=== PATIENT | male | born 1950 | race Caucasian/White ===

== ENCOUNTER 2020-11-10 08:40 | Inpatient (IN) ==
[2020-11-10] MEDS ORDERED: Nitroglycerin 0.4 MG TAB.SUBL SL PRN (13:29)
[2020-11-10] MEDS: *HR* OxyCODONE/APAP 5/325 TABLET PO PRN ×2 (17:20→23:32)
[2020-11-10] MEDS: Ondansetron 4 MG/2 ML VIAL IVP PRN (17:45)
[2020-11-10] MEDS: *HR* Ticagrelor 90 MG TABLET PO SCH (21:31)
[2020-11-10] MEDS: Metoprolol XL (24 HR) Succ 50 MG TAB.ER.24H PO SCH (21:32)
[2020-11-11 05:39] LABS: Basophils # 0.1 K/mcL (0.0-0.2); Basophils % 0.6 %; Eosinophils # 0.2 K/mcL (0.0-0.6); Eosinophils % 1.7 %; Hematocrit 41.1 % (37.5-50.1); Hemoglobin 13.8 g/dL (12.9-16.9); Immature Granulocytes % 0.2 % (0-4); Lymphocytes # 2.3 K/mcL (0.6-4.6); Lymphocytes % 25.7 %; Mean Corpuscular HGB Conc 33.6 g/dL (31.6-35.5); Mean Corpuscular Hemoglobin 29.9 pg (28.0-33.3); Mean Platelet Volume 11.2 fL (9.4-12.4); Monocytes % 10.7 %; Neutrophils # 5.5 K/mcL (1.6-8.9); Platelet Count 252 K/mcL (140-400); Red Blood Count 4.62 M/mcL (4.19-5.50); Segmented Neutrophils % 61.1 %
[2020-11-11 05:55] LABS: BUN/Creatinine Ratio 22 (6-26); Blood Urea Nitrogen 21 mg/dL (8-23); Calcium 8.2 mg/dL (8.6-10.3); Carbon Dioxide 23 mEq/L (23-29); Chloride 104 mEq/L (98-107); Glucose 86 mg/dL (70-105); Magnesium 1.7 mg/dL (1.6-2.6); Osmolality,Calculated 282 (280-300); Sodium 135 mEq/L (136-145); eGFR For African Americans > 60 (> 60); eGFR For Non-African Americans > 60 (> 60)
[2020-11-11 06:06] LABS: Potassium 3.9 mEq/L (3.5-5.1)
[2020-11-11] MEDS: *HR* OxyCODONE/APAP 5/325 TABLET PO PRN ×3 (06:15→20:48)
[2020-11-11] MEDS: Ondansetron 4 MG/2 ML VIAL IVP PRN (06:56)
[2020-11-11] MEDS: lisinopriL 5 MG TABLET PO SCH (08:20)
[2020-11-11] MEDS: Magnesium Oxide 400 MG TABLET PO SCH (08:20)
[2020-11-11] MEDS: Nicotine 14 MG PATCH.TD24 TD SCH (08:20)
[2020-11-11] MEDS: Isosorbide MONOnitrate (24 HR) 30 MG TAB.ER.24H PO SCH (08:20)
[2020-11-11] MEDS: Aspirin 81 MG TAB.CHEW PO SCH (08:20)
[2020-11-11] MEDS: Metoprolol XL (24 HR) Succ 50 MG TAB.ER.24H PO SCH ×2 (08:21→20:48)
[2020-11-11] MEDS: Loratadine 10 MG TABLET PO SCH (08:21)
[2020-11-11] MEDS: *HR* Ticagrelor 90 MG TABLET PO SCH ×2 (08:21→20:48)
[2020-11-12 05:51] LABS: Hematocrit 41.7 % (37.5-50.1)
[2020-11-12] MEDS: Nicotine 14 MG PATCH.TD24 TD SCH (09:19)
[2020-11-12] MEDS: Magnesium Oxide 400 MG TABLET PO SCH (09:20)
[2020-11-12] MEDS: *HR* Ticagrelor 90 MG TABLET PO SCH ×2 (09:20→20:20)
[2020-11-12] MEDS: Aspirin 81 MG TAB.CHEW PO SCH (09:20)
[2020-11-12] MEDS: lisinopriL 5 MG TABLET PO SCH (09:20)
[2020-11-12] MEDS: Loratadine 10 MG TABLET PO SCH (09:20)
[2020-11-12] MEDS: Metoprolol XL (24 HR) Succ 50 MG TAB.ER.24H PO SCH ×2 (09:20→20:20)
[2020-11-12] MEDS: Isosorbide MONOnitrate (24 HR) 30 MG TAB.ER.24H PO SCH (09:20)
[2020-11-12] MEDS: Ondansetron 4 MG/2 ML VIAL IVP PRN (17:29)
[2020-11-12] MEDS: *HR* OxyCODONE/APAP 5/325 TABLET PO PRN (17:34)
[2020-11-13] MEDS: *HR* OxyCODONE/APAP 5/325 TABLET PO PRN ×2 (00:22→19:58)
[2020-11-13] MEDS: Aspirin 81 MG TAB.CHEW PO SCH (08:03)
[2020-11-13] MEDS: Metoprolol XL (24 HR) Succ 50 MG TAB.ER.24H PO SCH ×2 (08:03→19:57)
[2020-11-13] MEDS: Nicotine 14 MG PATCH.TD24 TD SCH (08:03)
[2020-11-13] MEDS: Loratadine 10 MG TABLET PO SCH (08:04)
[2020-11-13] MEDS: lisinopriL 5 MG TABLET PO SCH (08:04)
[2020-11-13] MEDS: Magnesium Oxide 400 MG TABLET PO SCH (08:04)
[2020-11-13] MEDS: Isosorbide MONOnitrate (24 HR) 30 MG TAB.ER.24H PO SCH (08:04)
[2020-11-13] MEDS: *HR* Ticagrelor 90 MG TABLET PO SCH ×2 (08:04→19:56)
[2020-11-13] MEDS ORDERED: MOM Conc 10 ML UD.LIQ PO PRN (16:14)
[2020-11-13] MEDS: Sennosides/Docusate Sodium TABLET PO SCH (19:57)
[2020-11-14 04:46] LABS: Hematocrit 42.5 % (37.5-50.1); Hemoglobin 14.4 g/dL (12.9-16.9); Mean Corpuscular HGB Conc 33.9 g/dL (31.6-35.5); Mean Corpuscular Hemoglobin 29.8 pg (28.0-33.3); Mean Corpuscular Volume 87.8 fL (83.0-100.0); Mean Platelet Volume 11.2 fL (9.4-12.4); Platelet Count 284 K/mcL (140-400); Red Blood Count 4.84 M/mcL (4.19-5.50); Red Cell Distribution Width 12.8 % (11.5-14.5); White Blood Count 10.9 K/mcL (4.3-11.1)
[2020-11-14 05:03] LABS: Alanine Aminotransferase 93 Units/L (7-52); Albumin 3.3 g/dL (3.5-5.7); Alkaline Phosphatase 109 Units/L (34-104); Aspartate Amino Transferase 50 Units/L (13-39); BUN/Creatinine Ratio 23 (6-26); Bilirubin,Total 0.4 mg/dL (0.3-1.0); Blood Urea Nitrogen 20 mg/dL (8-23); Calcium 8.8 mg/dL (8.6-10.3); Carbon Dioxide 23 mEq/L (23-29); Chloride 103 mEq/L (98-107); Globulin 3.2 g/dL (2.4-3.5); Glucose 100 mg/dL (70-105); Magnesium 1.7 mg/dL (1.6-2.6); Osmolality,Calculated 279 (280-300); Potassium 4.1 mEq/L (3.5-5.1); Sodium 133 mEq/L (136-145); Total Protein 6.5 g/dL (6.4-8.9); eGFR For African Americans > 60 (> 60); eGFR For Non-African Americans > 60 (> 60)
[2020-11-14] MEDS: Nicotine 14 MG PATCH.TD24 TD SCH (08:36)
[2020-11-14] MEDS: Magnesium Oxide 400 MG TABLET PO SCH (08:39)
[2020-11-14] MEDS: Isosorbide MONOnitrate (24 HR) 30 MG TAB.ER.24H PO SCH (08:39)
[2020-11-14] MEDS: Sennosides/Docusate Sodium TABLET PO SCH ×2 (08:40→21:30)
[2020-11-14] MEDS: Aspirin 81 MG TAB.CHEW PO SCH (08:40)
[2020-11-14] MEDS: lisinopriL 5 MG TABLET PO SCH (08:40)
[2020-11-14] MEDS: *HR* Ticagrelor 90 MG TABLET PO SCH ×2 (08:40→21:31)
[2020-11-14] MEDS: Metoprolol XL (24 HR) Succ 50 MG TAB.ER.24H PO SCH ×2 (08:41→21:30)
[2020-11-14] MEDS: Loratadine 10 MG TABLET PO SCH (08:41)
[2020-11-14] MEDS: Benzonatate 100 MG CAPSULE PO PRN (22:05)
[2020-11-15] MEDS: Nicotine 14 MG PATCH.TD24 TD SCH (08:42)
[2020-11-15] MEDS: Metoprolol XL (24 HR) Succ 50 MG TAB.ER.24H PO SCH ×2 (08:42→19:57)
[2020-11-15] MEDS: Magnesium Oxide 400 MG TABLET PO SCH (08:42)
[2020-11-15] MEDS: Isosorbide MONOnitrate (24 HR) 30 MG TAB.ER.24H PO SCH (08:42)
[2020-11-15] MEDS: lisinopriL 5 MG TABLET PO SCH (08:43)
[2020-11-15] MEDS: Loratadine 10 MG TABLET PO SCH (08:43)
[2020-11-15] MEDS: Sennosides/Docusate Sodium TABLET PO SCH ×2 (08:44→19:50)
[2020-11-15] MEDS: *HR* Ticagrelor 90 MG TABLET PO SCH ×2 (08:44→19:57)
[2020-11-15] MEDS: Aspirin 81 MG TAB.CHEW PO SCH (08:44)
[2020-11-15] MEDS: Benzonatate 100 MG CAPSULE PO PRN (19:56)
[2020-11-16] MEDS: Nicotine 14 MG PATCH.TD24 TD SCH (08:08)
[2020-11-16] MEDS: Metoprolol XL (24 HR) Succ 50 MG TAB.ER.24H PO SCH ×2 (08:10→20:08)
[2020-11-16] MEDS: Magnesium Oxide 400 MG TABLET PO SCH (08:10)
[2020-11-16] MEDS: *HR* Ticagrelor 90 MG TABLET PO SCH ×2 (08:10→20:08)
[2020-11-16] MEDS: Sennosides/Docusate Sodium TABLET PO SCH ×2 (08:10→20:08)
[2020-11-16] MEDS: Aspirin 81 MG TAB.CHEW PO SCH (08:10)
[2020-11-16] MEDS: Loratadine 10 MG TABLET PO SCH (08:10)
[2020-11-16] MEDS: lisinopriL 5 MG TABLET PO SCH (08:10)
[2020-11-16] MEDS: Isosorbide MONOnitrate (24 HR) 30 MG TAB.ER.24H PO SCH (08:10)
[2020-11-17 07:25] VITALS: BP 115/83
[2020-11-17] MEDS: Metoprolol XL (24 HR) Succ 50 MG TAB.ER.24H PO SCH (10:09)
[2020-11-17] MEDS: Nicotine 14 MG PATCH.TD24 TD SCH (10:09)
[2020-11-17] MEDS: Isosorbide MONOnitrate (24 HR) 30 MG TAB.ER.24H PO SCH (10:09)
[2020-11-17] MEDS: Loratadine 10 MG TABLET PO SCH (10:09)
[2020-11-17] MEDS: Aspirin 81 MG TAB.CHEW PO SCH (10:09)
[2020-11-17] MEDS: Sennosides/Docusate Sodium TABLET PO SCH (10:09)
[2020-11-17] MEDS: Magnesium Oxide 400 MG TABLET PO SCH (10:10)
[2020-11-17] MEDS: lisinopriL 5 MG TABLET PO SCH (10:10)
[2020-11-17] MEDS: *HR* Ticagrelor 90 MG TABLET PO SCH (10:10)
== END 2020-11-17 14:04 | disposition home or self-care (01) | DRG 281 ==
LOC: INPGRE 15:18
PROVIDERS: ADMIT Family Medicine; ATTEND Family Medicine

== ENCOUNTER 2021-01-18 18:37 | Inpatient (IN) ==
[2021-01-18] MEDS ORDERED: Ipratropium/Albuterol Neb 3 ML IH ONE ×2 (19:09→19:10)
[2021-01-18 19:39] LABS: Basophils # 0.1 K/mcL (0.0-0.2); Basophils % 0.6 %; Eosinophils # 0.1 K/mcL (0.0-0.6); Eosinophils % 1.3 %; Hematocrit 40.8 % (37.5-50.1); Hemoglobin 13.5 g/dL (12.9-16.9); Immature Granulocytes % 0.2 % (0-4); Lymphocytes # 1.7 K/mcL (0.6-4.6); Lymphocytes % 18.7 %; Mean Corpuscular HGB Conc 33.1 g/dL (31.6-35.5); Mean Corpuscular Hemoglobin 29.7 pg (28.0-33.3); Mean Corpuscular Volume 89.7 fL (83.0-100.0); Mean Platelet Volume 11.3 fL (9.4-12.4); Monocytes # 0.9 K/mcL (0.0-1.3); Monocytes % 10.3 %; Neutrophils # 6.1 K/mcL (1.6-8.9); Platelet Count 251 K/mcL (140-400); Red Blood Count 4.55 M/mcL (4.19-5.50); Red Cell Distribution Width 13.5 % (11.5-14.5); Segmented Neutrophils % 68.9 %; White Blood Count 8.9 K/mcL (4.3-11.1)
[2021-01-18 19:48] LABS: INR 1.1; Prothrombin Time 12.9 Seconds (9.4-12.1)
[2021-01-18 19:51] LABS: Activated Partial Thrombo Time 31.1 Seconds (26.0-36.0)
[2021-01-18 19:56] LABS: Alanine Aminotransferase 52 Units/L (7-52); Albumin/Globulin Ratio 1.2 (1.1-2.2); Alkaline Phosphatase 146 Units/L (34-104); Aspartate Amino Transferase 28 Units/L (13-39); BUN/Creatinine Ratio 20 (6-26); Bilirubin,Total 0.4 mg/dL (0.3-1.0); Blood Urea Nitrogen 21 mg/dL (8-23); Calcium 9.2 mg/dL (8.6-10.3); Carbon Dioxide 27 mEq/L (23-29); Chloride 102 mEq/L (98-107); Globulin 3.3 g/dL (2.4-3.5); Glucose 103 mg/dL (70-105); Magnesium 1.9 mg/dL (1.6-2.6); Osmolality,Calculated 285 (280-300); Potassium 3.9 mEq/L (3.5-5.1); Sodium 136 mEq/L (136-145); Total Protein 7.3 g/dL (6.4-8.9); eGFR For African Americans > 60 (> 60); eGFR For Non-African Americans > 60 (> 60)
[2021-01-18 20:00] LABS: Troponin I 0.03 ng/mL (< 0.04)
[2021-01-18] MEDS ORDERED: Furosemide 40 MG/4 ML VIAL IVP ONE (20:18)
[2021-01-18] MEDS ORDERED: Isovue-370 500 ML BOTTLE IVP ONE (20:18)
[2021-01-18] MEDS ORDERED: Nitroglycerin 1 INCH/GM PACKET TP ONE (21:16)
[2021-01-18] MEDS ORDERED: Naloxone 0.4 MG/ML INJ IVP PRN (23:17)
[2021-01-18] MEDS ORDERED: *HR* HYDROcodone/Acet 5/325 mg TABLET PO ONE (23:35)
[2021-01-19] MEDS: Furosemide 40 MG/4 ML VIAL IVP SCH ×4 (00:37→18:20)
[2021-01-19] MEDS: Nitroglycerin 1 INCH/GM PACKET TP SCH ×3 (00:38→10:16)
[2021-01-19] MEDS: *HR* Enoxaparin 40 MG/0.4 ML SYRINGE SQ SCH (05:04)
[2021-01-19] MEDS: Ondansetron ODT 4 MG TAB.RAPDIS SL PRN (05:19)
[2021-01-19 08:18] LABS: BUN/Creatinine Ratio 20 (6-26); Blood Urea Nitrogen 19 mg/dL (8-23); Calcium 9.1 mg/dL (8.6-10.3); Carbon Dioxide 28 mEq/L (23-29); Chloride 100 mEq/L (98-107); Glucose 94 mg/dL (70-105); Osmolality,Calculated 286 (280-300); Potassium 3.3 mEq/L (3.5-5.1); Sodium 137 mEq/L (136-145); eGFR For African Americans > 60 (> 60); eGFR For Non-African Americans > 60 (> 60)
[2021-01-19] MEDS ORDERED: Isosorbide MONOnitrate (24 HR) 30 MG TAB.ER.24H PO SCH (09:00)
[2021-01-19] MEDS: Aspirin 81 MG TAB.CHEW PO SCH (10:16)
[2021-01-19] MEDS: Magnesium Oxide 400 MG TABLET PO SCH ×2 (10:16→21:41)
[2021-01-19] MEDS: *HR* Ticagrelor 90 MG TABLET PO SCH ×2 (10:16→21:41)
[2021-01-19] MEDS ORDERED: Perflutren Lipid Microsphere 1.3 ML in 0.9 % Sodium Chloride 8.7 ML IVP PRN (11:26)
[2021-01-19] MEDS: *HR* HYDROcodone/Acet 5/325 mg TABLET PO PRN ×2 (12:29→21:41)
[2021-01-19] MEDS ORDERED: Furosemide 40 MG/4 ML VIAL IVP SCH (17:00)
[2021-01-20] MEDS: *HR* HYDROcodone/Acet 5/325 mg TABLET PO PRN ×3 (04:00→21:13)
[2021-01-20] MEDS: *HR* Enoxaparin 40 MG/0.4 ML SYRINGE SQ SCH (06:02)
[2021-01-20] MEDS ORDERED: Isosorbide MONOnitrate (24 HR) 30 MG TAB.ER.24H PO SCH (09:00)
[2021-01-20] MEDS: Magnesium Oxide 400 MG TABLET PO SCH ×2 (09:06→20:04)
[2021-01-20] MEDS: Aspirin 81 MG TAB.CHEW PO SCH (09:06)
[2021-01-20] MEDS: *HR* Ticagrelor 90 MG TABLET PO SCH ×2 (09:07→20:04)
[2021-01-20] MEDS: carvediloL 6.25 MG TABLET PO SCH ×2 (09:07→15:56)
[2021-01-20] MEDS: Isosorbide MONOnitrate (24 HR) 30 MG TAB.ER.24H PO SCH (09:07)
[2021-01-20] MEDS: Furosemide 40 MG/4 ML VIAL IVP SCH (09:07)
[2021-01-20 13:15] LABS: Basophils # 0.1 K/mcL (0.0-0.2); Basophils % 0.8 %; Eosinophils # 0.4 K/mcL (0.0-0.6); Eosinophils % 4.2 %; Hematocrit 40.7 % (37.5-50.1); Hemoglobin 13.5 g/dL (12.9-16.9); Immature Granulocytes % 0.2 % (0-4); Lymphocytes # 1.6 K/mcL (0.6-4.6); Lymphocytes % 18.7 %; Mean Corpuscular HGB Conc 33.2 g/dL (31.6-35.5); Mean Corpuscular Hemoglobin 29.2 pg (28.0-33.3); Mean Corpuscular Volume 87.9 fL (83.0-100.0); Mean Platelet Volume 11.3 fL (9.4-12.4); Monocytes # 0.8 K/mcL (0.0-1.3); Monocytes % 9.1 %; Neutrophils # 5.6 K/mcL (1.6-8.9); Nucleated Red Blood Cells 0.4 /100 WBC (0); Platelet Count 246 K/mcL (140-400); Red Blood Count 4.63 M/mcL (4.19-5.50); Red Cell Distribution Width 13.2 % (11.5-14.5); White Blood Count 8.3 K/mcL (4.3-11.1)
[2021-01-20 13:28] LABS: BUN/Creatinine Ratio 19 (6-26); Blood Urea Nitrogen 24 mg/dL (8-23); Calcium 8.9 mg/dL (8.6-10.3); Carbon Dioxide 25 mEq/L (23-29); Chloride 97 mEq/L (98-107); Glucose 181 mg/dL (70-105); Osmolality,Calculated 287 (280-300); Potassium 3.9 mEq/L (3.5-5.1); Sodium 134 mEq/L (136-145); eGFR For African Americans > 60 (> 60); eGFR For Non-African Americans 58 (> 60)
[2021-01-20] MEDS: Mag Hydrox/Al Hydrox/Simeth 30 ML UDC PO PRN (21:06)
[2021-01-20] MEDS: Melatonin 3 MG TABLET PO PRN (21:13)
[2021-01-20] MEDS: Nicotine 14 MG PATCH.TD24 TD SCH (22:46)
[2021-01-21] MEDS ORDERED: Magnesium Sulfate 1 GM in 0.9 % Sodium Chloride 1 GM/100 ML IV.SOLN IVPB ONE (03:26)
[2021-01-21] MEDS: *HR* Enoxaparin 40 MG/0.4 ML SYRINGE SQ SCH (05:13)
[2021-01-21 05:54] LABS: Basophils # 0.1 K/mcL (0.0-0.2); Basophils % 0.6 %; Eosinophils # 0.3 K/mcL (0.0-0.6); Eosinophils % 3.4 %; Hematocrit 40.8 % (37.5-50.1); Hemoglobin 13.4 g/dL (12.9-16.9); Immature Granulocytes % 0.4 % (0-4); Lymphocytes # 1.8 K/mcL (0.6-4.6); Lymphocytes % 19.1 %; Mean Corpuscular HGB Conc 32.8 g/dL (31.6-35.5); Mean Corpuscular Hemoglobin 29.2 pg (28.0-33.3); Mean Corpuscular Volume 88.9 fL (83.0-100.0); Mean Platelet Volume 11.7 fL (9.4-12.4); Neutrophils # 6.4 K/mcL (1.6-8.9); Platelet Count 241 K/mcL (140-400); Red Blood Count 4.59 M/mcL (4.19-5.50); Red Cell Distribution Width 13.3 % (11.5-14.5); Segmented Neutrophils % 66.5 %; White Blood Count 9.6 K/mcL (4.3-11.1)
[2021-01-21 06:15] LABS: BUN/Creatinine Ratio 25 (6-26); Blood Urea Nitrogen 23 mg/dL (8-23); Calcium 8.9 mg/dL (8.6-10.3); Carbon Dioxide 26 mEq/L (23-29); Chloride 101 mEq/L (98-107); Glucose 117 mg/dL (70-105); Osmolality,Calculated 285 (280-300); Sodium 135 mEq/L (136-145); eGFR For African Americans > 60 (> 60); eGFR For Non-African Americans > 60 (> 60)
[2021-01-21] MEDS ORDERED: Furosemide 20 MG/2 ML VIAL IVP SCH ×2 (09:00→21:00)
[2021-01-21] MEDS: carvediloL 6.25 MG TABLET PO SCH ×2 (09:57→16:35)
[2021-01-21] MEDS: Aspirin 81 MG TAB.CHEW PO SCH (09:57)
[2021-01-21] MEDS: Isosorbide MONOnitrate (24 HR) 30 MG TAB.ER.24H PO SCH (09:57)
[2021-01-21] MEDS: *HR* Ticagrelor 90 MG TABLET PO SCH ×2 (09:57→20:20)
[2021-01-21] MEDS: Magnesium Oxide 400 MG TABLET PO SCH ×2 (09:58→20:20)
[2021-01-21] MEDS: *HR* HYDROcodone/Acet 5/325 mg TABLET PO PRN ×2 (10:08→16:35)
[2021-01-21] MEDS ORDERED: Ipratropium/Albuterol Neb 3 ML IH PRN (14:00)
[2021-01-21] MEDS: Melatonin 3 MG TABLET PO PRN (20:20)
[2021-01-21] MEDS: Nicotine 14 MG PATCH.TD24 TD SCH (20:21)
[2021-01-21] MEDS: Ondansetron ODT 4 MG TAB.RAPDIS SL PRN (21:36)
[2021-01-22] MEDS: *HR* HYDROcodone/Acet 5/325 mg TABLET PO PRN (03:52)
[2021-01-22] MEDS: Mag Hydrox/Al Hydrox/Simeth 30 ML UDC PO PRN (03:52)
[2021-01-22] MEDS: *HR* Enoxaparin 40 MG/0.4 ML SYRINGE SQ SCH (05:27)
[2021-01-22] MEDS ORDERED: Furosemide 20 MG TABLET PO SCH (08:20)
[2021-01-22] MEDS: *HR* Ticagrelor 90 MG TABLET PO SCH (08:29)
[2021-01-22] MEDS: Magnesium Oxide 400 MG TABLET PO SCH (08:29)
[2021-01-22] MEDS: Isosorbide MONOnitrate (24 HR) 30 MG TAB.ER.24H PO SCH (08:29)
[2021-01-22] MEDS: Aspirin 81 MG TAB.CHEW PO SCH (08:29)
[2021-01-22] MEDS: carvediloL 6.25 MG TABLET PO SCH ×2 (08:30→16:36)
[2021-01-22] MEDS ORDERED: Furosemide 20 MG/2 ML VIAL IVP SCH (09:00)
[2021-01-22 09:45] LABS: Basophils # 0.1 K/mcL (0.0-0.2); Basophils % 0.8 %; Eosinophils # 0.3 K/mcL (0.0-0.6); Eosinophils % 4.3 %; Hematocrit 43.3 % (37.5-50.1); Immature Granulocytes % 0.3 % (0-4); Lymphocytes # 1.9 K/mcL (0.6-4.6); Lymphocytes % 24.3 %; Mean Corpuscular HGB Conc 32.3 g/dL (31.6-35.5); Mean Corpuscular Hemoglobin 29.2 pg (28.0-33.3); Mean Corpuscular Volume 90.2 fL (83.0-100.0); Mean Platelet Volume 11.4 fL (9.4-12.4); Monocytes # 0.7 K/mcL (0.0-1.3); Monocytes % 8.9 %; Neutrophils # 4.7 K/mcL (1.6-8.9); Platelet Count 260 K/mcL (140-400); Red Cell Distribution Width 13.2 % (11.5-14.5); Segmented Neutrophils % 61.4 %; White Blood Count 7.7 K/mcL (4.3-11.1)
[2021-01-22 10:02] LABS: BUN/Creatinine Ratio 22 (6-26); Blood Urea Nitrogen 22 mg/dL (8-23); Calcium 9.1 mg/dL (8.6-10.3); Carbon Dioxide 26 mEq/L (23-29); Chloride 100 mEq/L (98-107); Glucose 137 mg/dL (70-105); Osmolality,Calculated 283 (280-300); Potassium 4.1 mEq/L (3.5-5.1); Sodium 134 mEq/L (136-145); eGFR For African Americans > 60 (> 60); eGFR For Non-African Americans > 60 (> 60)
[2021-01-22 16:14] VITALS: BP 140/90
== END 2021-01-22 18:10 | disposition home or self-care (01) | DRG 293 ==
LOC: EMEROOGRE 18:37 → INPGRE 18:37 → SUATTDRO 23:22 → INPGRE 23:47
PROVIDERS: ADMIT Internal Medicine; ATTEND Family Medicine